=== PATIENT | female | born 1930 | race Caucasian/White ===

== ENCOUNTER → 2016-07-23 | Day surgery (SDC) | payer OTHER ==
[~2016-07-23] MED LIST: BACITRACIN IM FOR SOLN 50,000 UNIT VIAL ONE; BUPIVACAINE HCL PF 0.75% 30 ML VIAL ONE; GENTAMICIN SULFATE 80 MG/2 ML VIAL ONE; LACTATED RINGER'S 1000 ML INJ 1,000 ML ONE; LIDOCAINE 1.5%/EPINEPHrine 1:200,000 PF SOLN 30 ML AMP ONE; MIDAZOLAM HCL 2 MG/2 ML VIAL ONE; ONDANSETRON HCL 4 MG/2 ML VIAL IV PUSH ONE; PROPOFOL 200 MG/20 ML AMP IV ONE; SODIUM CHLORIDE 0.9% 20 ML VIAL ONE; ceFAZolin INJ 1,000 MG VIAL ONE
--- NOTE | 2016-07-23 11:24 | TN ---
cc: NORAH LAW M.D. DATE OF SURGERY: July 23, 2016 PREOPERATIVE DIAGNOSIS Right shoulder complete rotator cuff tendon tear, impingement syndrome, osteoarthritis AC joint, and adhesive capsulitis. POSTOPERATIVE DIAGNOSIS Right shoulder complete rotator cuff tendon tear, impingement syndrome, osteoarthritis AC joint, and adhesive capsulitis. PROCEDURE Right shoulder rotator cuff tendon repair, Neer decompression acromioplasty, resection acromioclavicular joint, excision coracoacromial ligament, manipulate shoulder under anesthesia. SURGEON Jordyn Law MD NURSE PRACTITIONER: CLAUDIA Haro SPECIMENS None. ESTIMATED BLOOD LOSS: Minimum. COMPLICATIONS: None. ANESTHESIA: General. Interscalene block. DRAINS: None. CONDITION: The condition is stable. PLAN OF ACTIVITY: Per orders. PROCEDURE: My administrative office assistant Aga TAYLOR was present for entire surgical case. She was medically necessary for entire case because of the complexity case and to facilitate the performance of the procedure. The [employer] GR[employer]ER at back table did not have a skill set this case to manipulate the instruments e.g. multiple different soft tissue tractors, trial implants and suture passing instrumentations. The patient was brought into the operating room had satisfactory anesthesia by Dr. Najera and interscalene block by Dr. Najera. The patient placed in a modified beach-chair position. All pressure well-padded. The right shoulder, thorax, upper extremity down to including fingers were all prepped, and draped in usual sterile manner. Because of the patient's morbid obesity great care was made to protect all pressure points. The shoulder was manipulated under anesthesia. The patient was found to have a mild to moderate degree of adhesive capsulitis. Initially shoulder was in forward flexion, abduction and external rotation. Anterior exposure shoulder made. All bleeders were individually coagulated. Dissection through considerable amount of adipose tissue. The tendinous portion of deltoid removed off the anterior aspect acromion. The patient was found to have a full thickness tear involving the supraspinatus tendon. The multiple #2 Tycron suture used in a double row type matter for repair. A bony trough was created in the proximal humerus at the greater tuberosity and for the repair the rotator cuff tendon. Using concept suture passer multiple holes using proximal humerus. Sutures then passed through the holes. The shoulder is held in forward flexion and internal rotation and patient found to have an excellent repair the supraspinatus back into the bony trough created at the greater tuberosity. Multiple holes using the acromion with 2 mm drill bit. Multiple #2 Tycron sutures and then used to repair the deltoid back to the acromion. The subcutaneous layers with 0 Vicryl and 2-0 Vicryl suture. The skin approximated running subcuticular 2-0 nylon. Sterile dressing applied. The patient tolerated the procedure well and arrived to the Recovery Room in stable and satisfactory condition. MD BROOKLYNN Gutierrez/kiara /10:13 AM /10:50 AM
== END | disposition home or self-care (01) ==
LOC: ESDC 07:13
PROVIDERS: ATTEND Orthopaedic Surgery Orthopaedic Surgery of the Spine
DX: M75.121 Complete rotator cuff tear or rupture of right shoulder, not specified as traumatic (principal); M75.41 Impingement syndrome of right shoulder; M75.01 Adhesive capsulitis of right shoulder; M19.011 Primary osteoarthritis, right shoulder; E11.9 Type 2 diabetes mellitus without complications; Z79.4 Long term (current) use of insulin
CPT/HCPCS: 00450; 01630; 01991; 23120; 23420; 64417; 82948; J0690; J1580; J2250; J2405; J7120